=== PATIENT | male | born 1945 | race Caucasian/White ===

== ENCOUNTER 2017-05-08 10:57 | Emergency (ER) | payer MEDICARE, OTHER ==
[~2017-05-08] VITALS: Ht 180.3 cm; Wt 85.0 kg
[~2017-05-08 10:57] MED LIST: AZOR; HYDROCODONE; METFORMIN; SULF1TAB48 PO
[2017-05-08] MEDS ORDERED: SODIUM CHLORIDE 0.9% 1,000 ML IV ONE (11:19)
[2017-05-08 11:43] LABS: BASOPHILS % 0.8 % (0.0-2.0); EOSINOPHILS % 3.4 % (0.0-5.0); HEMATOCRIT. 37.9 % (42.0-52.0); HEMOGLOBIN. 13.4 g/dL (14.0-18.0); LYMPHOCYTES % 24.9 % (20.0-50.0); MEAN CORPUSCULAR VOLUME 90.9 fL (80.0-94.0); MEAN PLATELET VOLUME 7.9 fl (7.4-10.4); MONOCYTES % 10.5 % (2.0-8.0); NEUTROPHILS % 60.4 % (40.0-76.0); PLATELET 230 x1000/uL (130-400); RED BLOOD CELL COUNT 4.17 mill/uL (4.7-6.1); RED CELL DISTRIBUTION WIDTH 13.4 % (11.6-14.6)
[2017-05-08 11:48] LABS: CHLORIDE 98 mEq/L (98-107)
[2017-05-08 11:53] LABS: ETHANOL BLOOD < 10 mg/dL
[2017-05-08 12:40] LABS: CLARITY URINE CLOUDY (CLEAR); COLOR URINE YELLOW (YELLOW); KETONES URINE TRACE (NEGATIVE); LEUKOCYTE ESTERASE URINE 1+ (NEGATIVE); NITRITE URINE NEGATIVE (NEGATIVE); OCCULT BLOOD URINE 1+ (NEGATIVE); PROTEIN URINE 1+ (NEGATIVE); SPECIFIC GRAVITY URINE 1.031 (1.005-1.030); UROBILINOGEN URINE 0.2 E.U./dL (0.2-1.0)
[2017-05-08 12:58] LABS: *AMPHETAMINES SCREEN URINE NEGATIVE (NEGATIVE); *BARBITURATES SCREEN URINE NEGATIVE (NEGATIVE); *BENZODIAZEPINES SCREEN URINE NEGATIVE (NEGATIVE); *COCAINE SCREEN URINE NEGATIVE (NEGATIVE); METHADONE URINE SCREEN NEGATIVE (NEGATIVE)
[2017-05-08 12:59] LABS: CANNABINOID URINE SCREEN NEGATIVE (NEGATIVE); OPIATES URINE SCREEN NEGATIVE (NEGATIVE); PHENCYCLIDINE URINE SCREEN NEGATIVE (NEGATIVE)
[2017-05-08] MEDS ORDERED: LABETALOL 5MG/ML SYR 20 MG/4 ML SYRINGE IV ONE (14:15)
[2017-05-08] MEDS ORDERED: CLONIDINE 0.1MG TABLET PO ONE (14:15)
[2017-05-08] MEDS ORDERED: CEFTRIAXONE 1 G PREMIX 50 ML IV ONE (14:15)
[2017-05-08 14:41] VITALS: BP 179/101
== END 2017-05-08 15:15 | disposition home or self-care (01) ==
LOC: ER 11:20
DX: N39.0 Urinary tract infection, site not specified (principal); R05 Cough; I10 Essential (primary) hypertension; N40.0 Benign prostatic hyperplasia without lower urinary tract symptoms; E11.9 Type 2 diabetes mellitus without complications; Z79.84 Long term (current) use of oral hypoglycemic drugs
CPT/HCPCS: 36415; 71045; 80053; 80305; 81003; 83690; 85025; 87077; 87086; 87186; 96365; 96375; 99285; G0482; J0696; J3490; J7030

== ENCOUNTER 2018-06-20 13:15 | Inpatient (IN) | payer OTHER, MEDICARE ==
[~2018-06-20] VITALS: Ht 182.9 cm; Wt 81.6 kg
[2018-06-20] MEDS ORDERED: SODIUM CHLORIDE 0.9% 1000ML BAG (SEPSIS BOLUS) IV ONE (14:30)
[2018-06-20] MEDS ORDERED: KETOROLAC 30MG/ML VIAL IV STA (14:30)
[2018-06-20] MEDS ORDERED: ACETAMINOPHEN 325MG TABLET PO STA (14:30)
[2018-06-20] MEDS ORDERED: PIPERACILLIN/TAZ 3.375G PREMIX 50 ML IV ONE (14:30)
[2018-06-20] MEDS ORDERED: ONDANSETRON HCL 4MG/2ML INJ IV STA (14:30)
[2018-06-20] MEDS ORDERED: VANCOMYCIN 1 G PREMIX 200 ML IV ONE (14:30)
[2018-06-20] MEDS ORDERED: MORPHINE SULFATE 4 MG/ML CPJ (NOT FOR IM USE) IV STA (14:30)
[2018-06-20 14:42] LABS: BASOPHILS % 0.2 % (0.0-2.0); HEMATOCRIT. 40.9 % (42.0-52.0); HEMOGLOBIN. 14.4 g/dL (14.0-18.0); MEAN CORPUSCULAR HEMOGLOBIN 32.4 pg (28.0-32.0); MEAN CORPUSCULAR VOLUME 92.4 fL (80.0-94.0); MONOCYTES % 7.6 % (2.0-8.0); NEUTROPHILS % 83.2 % (40.0-76.0); PLATELET 148 x1000/uL (130-400); RED BLOOD CELL COUNT 4.43 mill/uL (4.7-6.1); RED CELL DISTRIBUTION WIDTH 13.1 % (11.6-14.6)
[2018-06-20] MEDS ORDERED: HYDRALAZINE 20MG/ML VIAL IV ONE (14:45)
[2018-06-20 14:49] LABS: PROTHROMBIN TIME 10.7 sec (9.6-11.0)
[2018-06-20 14:50] LABS: CHLORIDE 98 mEq/L (98-107)
[2018-06-20 14:54] LABS: ETHANOL BLOOD < 10 mg/dL
[2018-06-20 14:58] LABS: CREATINE KINASE 142 IU/L (39-308)
[2018-06-20 15:01] LABS: CREATINE KINASE MB FRACTION < 1.0 ng/mL (0.5-3.6)
[2018-06-20 17:08] LABS: CLARITY URINE CLOUDY (CLEAR); COLOR URINE YELLOW (YELLOW); KETONES URINE 2+ (NEGATIVE); LEUKOCYTE ESTERASE URINE 1+ (NEGATIVE); NITRITE URINE NEGATIVE (NEGATIVE); OCCULT BLOOD URINE TRACE (NEGATIVE); PH URINE 6.5 (4.5-8.0); PROTEIN URINE 2+ (NEGATIVE); SPECIFIC GRAVITY URINE 1.031 (1.005-1.030)
[2018-06-20 17:18] LABS: *AMPHETAMINES SCREEN URINE NEGATIVE (NEGATIVE)
[2018-06-20 17:19] LABS: *BARBITURATES SCREEN URINE NEGATIVE (NEGATIVE); *BENZODIAZEPINES SCREEN URINE NEGATIVE (NEGATIVE); *COCAINE SCREEN URINE NEGATIVE (NEGATIVE); CANNABINOID URINE SCREEN NEGATIVE (NEGATIVE); METHADONE URINE SCREEN NEGATIVE (NEGATIVE); OPIATES URINE SCREEN PRESUMTIVE POSITIVE (NEGATIVE); PHENCYCLIDINE URINE SCREEN NEGATIVE (NEGATIVE)
[2018-06-20 20:57] VITALS: BP 138/84
[2018-06-21] VITALS (7 sets, daily range): BP systolic 121–178; BP diastolic 75–97
[2018-06-21] MEDS ORDERED: DEXTROSE 50% WATER 50ML SYRINGE IV PRN (05:30)
[2018-06-21] MEDS: BLOOD SUGAR DIAGNOSTIC STRIP TEST SCH ×4 (06:26→21:13)
[2018-06-21] MEDS: INSULIN LISPRO 100 UNITS/ML SUBCUT SCH ×4 (06:50→21:13)
[2018-06-21] MEDS: ASPIRIN 81MG TABLET PO SCH (08:16)
[2018-06-21] MEDS: AMLODIPINE 5MG TABLET PO SCH ×2 (08:16→21:11)
[2018-06-21 09:48] LABS: BASOPHILS % 0.3 % (0.0-2.0); EOSINOPHILS % 0.9 % (0.0-5.0); HEMATOCRIT. 35.4 % (42.0-52.0); HEMOGLOBIN. 12.4 g/dL (14.0-18.0); LYMPHOCYTES % 11.8 % (20.0-50.0); MEAN CORPUSCULAR HEMOGLOBIN 32.3 pg (28.0-32.0); MEAN CORPUSCULAR VOLUME 91.9 fL (80.0-94.0); MEAN PLATELET VOLUME 9.8 fl (7.4-10.4); PLATELET 121 x1000/uL (130-400); RED BLOOD CELL COUNT 3.85 mill/uL (4.7-6.1); RED CELL DISTRIBUTION WIDTH 13.4 % (11.6-14.6)
[2018-06-21 09:55] LABS: CHLORIDE 103 mEq/L (98-107)
[2018-06-21] MEDS ORDERED: INFLUENZA VIRUS VACCINE(AFLURIA) 0.5ML SYR IM ONE (10:00)
[2018-06-21 10:03] LABS: LDL CHOLESTEROL 43 mg/dL (5-100)
[2018-06-21 10:05] LABS: HDL CHOLESTEROL 52 mg/dL (40-59)
[2018-06-21] MEDS: HYDROCODONE/ACETAMINOPHEN 5/325MG TABLET PO PRN (13:57)
[2018-06-21] MEDS: PIPERACILLIN/TAZ 3.375G PREMIX 50 ML IV SCH ×2 (14:43→21:10)
[2018-06-21] MEDS: CLONIDINE 0.1MG TABLET PO PRN (15:33)
[2018-06-21] MEDS: ONDANSETRON HCL 4MG/2ML INJ IV PRN (15:34)
[2018-06-21] MEDS: INSULIN GLARGINE UD 100 UNITS/ML SYR SUBCUT SCH (21:12)
[2018-06-22] VITALS (7 sets, daily range): BP systolic 129–166; BP diastolic 67–88
[2018-06-22] MEDS: HYDROCODONE/ACETAMINOPHEN 5/325MG TABLET PO PRN ×3 (00:29→11:47)
[2018-06-22] MEDS: PIPERACILLIN/TAZ 3.375G PREMIX 50 ML IV SCH (05:51)
[2018-06-22 06:09] LABS: BASOPHILS % 0.6 % (0.0-2.0); EOSINOPHILS % 3.2 % (0.0-5.0); HEMATOCRIT. 33.4 % (42.0-52.0); HEMOGLOBIN. 11.8 g/dL (14.0-18.0); LYMPHOCYTES % 16.9 % (20.0-50.0); MEAN CORPUSCULAR HEMOGLOBIN 32.6 pg (28.0-32.0); MEAN CORPUSCULAR VOLUME 92.5 fL (80.0-94.0); MEAN PLATELET VOLUME 9.4 fl (7.4-10.4); MONOCYTES % 8.7 % (2.0-8.0); NEUTROPHILS % 70.6 % (40.0-76.0); PLATELET 123 x1000/uL (130-400); RED BLOOD CELL COUNT 3.61 mill/uL (4.7-6.1); RED CELL DISTRIBUTION WIDTH 13.5 % (11.6-14.6)
[2018-06-22] MEDS: INSULIN LISPRO 100 UNITS/ML SUBCUT SCH ×2 (06:23→12:17)
[2018-06-22] MEDS: BLOOD SUGAR DIAGNOSTIC STRIP TEST SCH ×2 (06:23→12:17)
[2018-06-22 06:44] LABS: CHLORIDE 104 mEq/L (98-107)
[2018-06-22] MEDS: ASPIRIN 81MG TABLET PO SCH (09:40)
[2018-06-22] MEDS: AMLODIPINE 5MG TABLET PO SCH (09:41)
[2018-06-22] MEDS: INSULIN GLARGINE UD 100 UNITS/ML SYR SUBCUT SCH (09:43)
[2018-06-22] MEDS ORDERED: LOSARTAN POTASSIUM 50 MG TABLET PO SCH (10:45)
[2018-06-22] MEDS: ONDANSETRON HCL 4MG/2ML INJ IV PRN (11:47)
[2018-06-22] MEDS: CLONIDINE 0.1MG TABLET PO PRN (15:30)
[2018-06-22] MEDS ORDERED: HYDRALAZINE 20MG/ML VIAL IV NR ×2 (16:42→16:45)
[2018-06-22] MEDS ORDERED: HYDRALAZINE 20MG/ML VIAL IV ONE (16:45)
== END 2018-06-22 17:38 | disposition home or self-care (01) | DRG 872 ==
LOC: ER 15:15 → 8WST 17:04 → EDBEDREQ 17:14 → EDBEDREQSVC 17:14 → ENRESERV 20:09
PROVIDERS: ADMIT Internal Medicine; ATTEND Internal Medicine
DX: A41.9 Sepsis, unspecified organism (principal); N39.0 Urinary tract infection, site not specified; I10 Essential (primary) hypertension; N41.9 Inflammatory disease of prostate, unspecified; E11.65 Type 2 diabetes mellitus with hyperglycemia; Z90.49 Acquired absence of other specified parts of digestive tract; Z79.899 Other long term (current) drug therapy; Z79.84 Long term (current) use of oral hypoglycemic drugs
CPT/HCPCS: 36415; 71045; 74176; 80048; 80061; 80305; 80320; 82550; 82553; 82962; 83605; 83880; 84145; 84153; 84443; 84484; 90686; 93005; 96365; 96366; 97162; 99285; J0360; J1815; J1885; J2270; J2405; J2543; J3370; J7030; J7040; G0103; G0480

== ENCOUNTER 2019-05-21 14:59 | Emergency (ER) | payer OTHER, MEDICARE ==
[~2019-05-21] VITALS: Ht 175.3 cm; Wt 82.0 kg
[2019-05-21] MEDS ORDERED: AMLODIPINE 5MG TABLET PO ONE (16:00)
[2019-05-21 17:53] VITALS: BP 235/109
== END 2019-05-21 17:53 | disposition home or self-care (01) ==
LOC: ER 14:59
DX: I16.0 Hypertensive urgency (principal); E11.9 Type 2 diabetes mellitus without complications; Z79.84 Long term (current) use of oral hypoglycemic drugs
CPT/HCPCS: 93005; 99283

== ENCOUNTER 2019-10-28 13:00 | Inpatient (IN) | payer OTHER ==
[~2019-10-28] VITALS: Ht 175.3 cm; Wt 80.3 kg
[2019-10-28 14:25] LABS: BASOPHILS % 1.1 % (0.0-2.0); EOSINOPHILS % 3.4 % (0.0-5.0); HEMATOCRIT. 37.4 % (42.0-52.0); HEMOGLOBIN. 13.2 g/dL (14.0-18.0); LYMPHOCYTES % 33.6 % (20.0-50.0); MEAN CORPUSCULAR HEMOGLOBIN 32.7 pg (28.0-32.0); MEAN CORPUSCULAR VOLUME 92.6 fL (80.0-94.0); MONOCYTES % 7.3 % (2.0-8.0); NEUTROPHILS % 54.6 % (40.0-76.0); PLATELET 167 x1000/uL (130-400); RED BLOOD CELL COUNT 4.04 mill/uL (4.7-6.1); RED CELL DISTRIBUTION WIDTH 13.5 % (11.6-14.6)
[2019-10-28 14:27] LABS: CHLORIDE 102 mEq/L (98-107)
[2019-10-28 14:57] LABS: *BENZODIAZEPINES SCREEN URINE NEGATIVE (NEGATIVE); *COCAINE SCREEN URINE NEGATIVE (NEGATIVE); METHADONE URINE SCREEN NEGATIVE (NEGATIVE)
[2019-10-28 14:58] LABS: *AMPHETAMINES SCREEN URINE NEGATIVE (NEGATIVE); *BARBITURATES SCREEN URINE NEGATIVE (NEGATIVE); CANNABINOID URINE SCREEN NEGATIVE (NEGATIVE); OPIATES URINE SCREEN NEGATIVE (NEGATIVE); PHENCYCLIDINE URINE SCREEN NEGATIVE (NEGATIVE)
[2019-10-28] MEDS ORDERED: POTASSIUM CHLORIDE 20MEQ TABLET SR PO NR (17:15)
[2019-10-28] MEDS ORDERED: SODIUM CHLORIDE 0.9% 100 ML IV ONE (17:15)
[2019-10-28] MEDS ORDERED: ASPIRIN 325MG TABLET PO ONE (17:30)
[2019-10-28] MEDS ORDERED: SODIUM CHLORIDE 0.9% 500 ML IV ONE (17:30)
[2019-10-28] MEDS ORDERED: HYDRALAZINE 20MG/ML VIAL IV ONE (17:30)
[2019-10-28] MEDS ORDERED: NA PHOS,M-B/NA PHOS,DI-BA ENEMA 118ML PR PRN (18:00)
[2019-10-28] MEDS ORDERED: LORAZEPAM 0.5MG TABLET PO PRN (18:00)
[2019-10-28] MEDS ORDERED: DOCUSATE SODIUM 100MG CAPSULE PO PRN (18:00)
[2019-10-28] MEDS ORDERED: DEXTROSE 50% WATER 50ML SYRINGE IV PRN (18:00)
[2019-10-28] MEDS ORDERED: DIPHENHYDRAMINE 50MG/ML VIAL IV PRN (18:00)
[2019-10-28] MEDS ORDERED: ACETAMINOPHEN 650MG SUPP PR PRN (18:00)
[2019-10-28] MEDS ORDERED: IPRATROPIUM/ALBUTEROL 0.5-3(2.5)MG/3ML NEB NEB PRN (18:00)
[2019-10-28] MEDS ORDERED: MAGNESIUM/ALUMINUM HYDROXIDE/SIMETHICONE 30ML UDC PO PRN (18:00)
[2019-10-28] MEDS ORDERED: CLONIDINE 0.1MG TABLET PO PRN (18:00)
[2019-10-28] MEDS ORDERED: HYDROCODONE/ACETAMINOPHEN 5/325MG TABLET PO PRN (18:00)
[2019-10-28] MEDS ORDERED: ACETAMINOPHEN 650MG/20.3ML UDC GT PRN (18:00)
[2019-10-28] MEDS ORDERED: ONDANSETRON HCL 4MG/2ML INJ IV PRN (18:00)
[2019-10-28] MEDS ORDERED: GUAIFENESIN 200MG/10ML SUGAR FREE UDC PO PRN (18:00)
[2019-10-28] MEDS: AMLODIPINE 5MG TABLET PO SCH (18:57)
[2019-10-28] MEDS: BLOOD SUGAR DIAGNOSTIC STRIP TEST SCH ×2 (19:21→21:00)
[2019-10-28] MEDS: INSULIN LISPRO 100 UNITS/ML SUBCUT SCH ×2 (20:46→22:53)
[2019-10-28 21:17] VITALS: BP 197/97
[2019-10-28] MEDS ORDERED: IOHEXOL-350 100 ML BOTTLE ONE (21:36)
[2019-10-28 21:50] VITALS: BP 196/97
[2019-10-28] MEDS ORDERED: ATOR40TA70 PO (21:50)
[2019-10-28] MEDS ORDERED: AMLO10TA80 PO (21:50)
[2019-10-28] MEDS ORDERED: GLIP5TAB12 PO (21:50)
[2019-10-28] MEDS ORDERED: LEVO500T89 PO (21:58)
[2019-10-28] MEDS: FAMOTIDINE 20MG TABLET PO SCH (22:37)
[2019-10-28] MEDS: ENOXAPARIN 40MG/0.4ML SYR SUBCUT SCH (22:37)
[2019-10-29] VITALS: BP 162/85
[2019-10-29 01:48] LABS: CREATINE KINASE 99 IU/L (39-308)
[2019-10-29 01:50] LABS: CREATINE KINASE MB FRACTION 1.1 ng/mL (0.5-3.6)
[2019-10-29 04:00] VITALS: BP 164/88
[2019-10-29] MEDS: BLOOD SUGAR DIAGNOSTIC STRIP TEST SCH ×4 (06:06→21:19)
[2019-10-29] MEDS: INSULIN LISPRO 100 UNITS/ML SUBCUT SCH ×4 (06:21→21:25)
[2019-10-29 06:42] LABS: CLARITY URINE CLEAR (CLEAR); COLOR URINE YELLOW (YELLOW); KETONES URINE NEGATIVE (NEGATIVE); LEUKOCYTE ESTERASE URINE 2+ (NEGATIVE); NITRITE URINE NEGATIVE (NEGATIVE); OCCULT BLOOD URINE NEGATIVE (NEGATIVE); PROTEIN URINE NEGATIVE (NEGATIVE); SPECIFIC GRAVITY URINE 1.017 (1.005-1.030); UROBILINOGEN URINE 0.2 E.U./dL (0.2-1.0)
[2019-10-29 07:51] LABS: BASOPHILS % 0.7 % (0.0-2.0); HEMATOCRIT. 38.8 % (42.0-52.0); HEMOGLOBIN. 13.9 g/dL (14.0-18.0); LYMPHOCYTES % 31.4 % (20.0-50.0); MEAN CORPUSCULAR HEMOGLOBIN 33.1 pg (28.0-32.0); MEAN CORPUSCULAR VOLUME 92.7 fL (80.0-94.0); MEAN PLATELET VOLUME 10.5 fl (7.4-10.4); MONOCYTES % 7.1 % (2.0-8.0); NEUTROPHILS % 56.8 % (40.0-76.0); PLATELET 169 x1000/uL (130-400); RED BLOOD CELL COUNT 4.18 mill/uL (4.7-6.1); RED CELL DISTRIBUTION WIDTH 13.1 % (11.6-14.6)
[2019-10-29 08:00] VITALS: BP 164/87
[2019-10-29 08:11] LABS: CHLORIDE 104 mEq/L (98-107)
[2019-10-29 08:21] LABS: LDL CHOLESTEROL 88 mg/dL (5-100)
[2019-10-29 08:22] LABS: CREATINE KINASE 94 IU/L (39-308)
[2019-10-29 08:23] LABS: HDL CHOLESTEROL 55 mg/dL (40-59); T4 FREE 1.18 ng/dL (0.76-1.46)
[2019-10-29] MEDS: AMLODIPINE 5MG TABLET PO SCH ×2 (08:43→17:45)
[2019-10-29] MEDS: ASPIRIN 81MG EC TABLET PO SCH (08:43)
[2019-10-29 12:00] VITALS: BP 154/91
[2019-10-29 16:00] VITALS: BP 129/72
[2019-10-29 20:00] VITALS: BP 168/94
[2019-10-29] MEDS: FAMOTIDINE 20MG TABLET PO SCH (21:22)
[2019-10-29] MEDS: ENOXAPARIN 40MG/0.4ML SYR SUBCUT SCH (21:23)
[2019-10-29] MEDS: CEFTRIAXONE 1,000 MG in DEXTROSE 5% WATER 50 ML IV SCH (21:24)
[2019-10-30] VITALS: BP 181/90
[2019-10-30 04:00] VITALS: BP 156/92
[2019-10-30 05:57] LABS: HEMATOCRIT 38.8 % (42.0-52.0); HEMOGLOBIN 13.7 g/dL (14.0-18.0); MEAN CORPUSCULAR HEMOGLOBIN 32.8 pg (28.0-32.0); MEAN CORPUSCULAR VOLUME 93.1 fL (80.0-94.0); PLATELET 159 x1000/uL (130-400); RED BLOOD CELL COUNT 4.16 mill/uL (4.7-6.1); RED CELL DISTRIBUTION WIDTH 13.3 % (11.6-14.6)
[2019-10-30 06:11] LABS: CHLORIDE 105 mEq/L (98-107)
[2019-10-30] MEDS: BLOOD SUGAR DIAGNOSTIC STRIP TEST SCH ×4 (06:21→20:33)
[2019-10-30] MEDS: INSULIN LISPRO 100 UNITS/ML SUBCUT SCH ×4 (06:25→20:49)
[2019-10-30 08:00] VITALS: BP 167/99
[2019-10-30] MEDS ORDERED: REGADENOSON 0.4 MG/5 ML IV SCH (08:00)
[2019-10-30] MEDS: CLONIDINE 0.1MG TABLET PO SCH ×3 (08:41→23:06)
[2019-10-30] MEDS: AMLODIPINE 5MG TABLET PO SCH ×2 (08:42→20:48)
[2019-10-30] MEDS: ASPIRIN 81MG EC TABLET PO SCH (08:42)
[2019-10-30 12:00] VITALS: BP 132/78
[2019-10-30 16:15] VITALS: BP 137/77
[2019-10-30 16:55] LABS: INR 1.1; PROTHROMBIN TIME 11.4 sec (9.6-11.0)
[2019-10-30] MEDS: ENOXAPARIN 80MG/0.8ML SYR SUBCUT SCH (17:42)
[2019-10-30 20:00] VITALS: BP 149/68
[2019-10-30] MEDS: CEFTRIAXONE 1,000 MG in DEXTROSE 5% WATER 50 ML IV SCH (20:46)
[2019-10-30] MEDS: FAMOTIDINE 20MG TABLET PO SCH (20:48)
[2019-10-31] VITALS (7 sets, daily range): BP systolic 115–140; BP diastolic 67–76
[2019-10-31] MEDS: INSULIN LISPRO 100 UNITS/ML SUBCUT SCH ×2 (05:54→11:56)
[2019-10-31] MEDS: BLOOD SUGAR DIAGNOSTIC STRIP TEST SCH ×2 (05:55→11:51)
[2019-10-31] MEDS: CLONIDINE 0.1MG TABLET PO SCH ×2 (05:58→14:18)
[2019-10-31] MEDS: ENOXAPARIN 80MG/0.8ML SYR SUBCUT SCH (05:59)
[2019-10-31 07:36] LABS: BASOPHILS % 0.6 % (0.0-2.0); EOSINOPHILS % 5.6 % (0.0-5.0); HEMATOCRIT. 35.7 % (42.0-52.0); HEMOGLOBIN. 12.5 g/dL (14.0-18.0); MEAN CORPUSCULAR HEMOGLOBIN 32.6 pg (28.0-32.0); MEAN CORPUSCULAR VOLUME 92.9 fL (80.0-94.0); MEAN PLATELET VOLUME 10.5 fl (7.4-10.4); MONOCYTES % 8.1 % (2.0-8.0); NEUTROPHILS % 45.7 % (40.0-76.0); PLATELET 150 x1000/uL (130-400); RED BLOOD CELL COUNT 3.85 mill/uL (4.7-6.1); RED CELL DISTRIBUTION WIDTH 13.3 % (11.6-14.6)
[2019-10-31] MEDS: AMLODIPINE 5MG TABLET PO SCH (07:55)
[2019-10-31] MEDS: ASPIRIN 81MG EC TABLET PO SCH (07:55)
[2019-10-31 08:26] LABS: CHLORIDE 104 mEq/L (98-107)
[2019-10-31] MEDS ORDERED: WARFARIN SODIUM 7.5MG TABLET PO SCH (18:00)
== END 2019-10-31 17:54 | disposition home or self-care (01) | DRG 300 ==
LOC: ER 13:00 → 5WST 17:31 → SUPCPDRO 17:57 → ENRESERV 20:00
PROVIDERS: ADMIT Internal Medicine; ATTEND Internal Medicine
DX: I82.449 Acute embolism and thrombosis of unspecified tibial vein (principal); N39.0 Urinary tract infection, site not specified; M94.0 Chondrocostal junction syndrome [Tietze]; J84.10 Pulmonary fibrosis, unspecified; M54.30 Sciatica, unspecified side; D63.8 Anemia in other chronic diseases classified elsewhere; E11.65 Type 2 diabetes mellitus with hyperglycemia; E87.6 Hypokalemia; I10 Essential (primary) hypertension; D64.9 Anemia, unspecified; K57.90 Diverticulosis of intestine, part unspecified, without perforation or abscess without bleeding; I25.10 Atherosclerotic heart disease of native coronary artery without angina pectoris; Z82.3 Family history of stroke; Z82.49 Family history of ischemic heart disease and other diseases of the circulatory system; Z87.891 Personal history of nicotine dependence; Z79.899 Other long term (current) drug therapy
CPT/HCPCS: 36415; 71045; 71275; 78452; 80048; 80053; 80061; 80305; 81003; 82550; 82553; 82962; 83036; 83880; 84153; 84439; 84443; 84484; 85025; 85027; 93005; 93017; 93306; 93970; 99285; A9500; J0360; J0696; J1650; J1815; J7050; J7060; Q9967; G0103

== ENCOUNTER 2021-03-12 11:11 | Emergency (ER) | payer MEDICARE, OTHER ==
[~2021-03-12] VITALS: Ht 172.7 cm; Wt 66.0 kg
[~2021-03-12 11:11] MED LIST changes: +AMLO10TA80 PO; +ATOR40TA70 PO; -AZOR; +GLIP5TAB12 PO; -HYDROCODONE; +LEVO500T89 PO; -METFORMIN; -SULF1TAB48 PO
[2021-03-12 11:22] VITALS: BP 200/107
[2021-03-12 13:01] LABS: CHLORIDE 103 mEq/L (98-107)
[2021-03-12 13:07] LABS: BASOPHILS % 0.6 % (0.0-2.0); EOSINOPHILS % 1.3 % (0.0-5.0); HEMATOCRIT. 38.7 % (42.0-52.0); HEMOGLOBIN. 13.3 g/dL (14.0-18.0); LYMPHOCYTES % 14.4 % (20.0-50.0); MEAN CORPUSCULAR HEMOGLOBIN 32.4 pg (28.0-32.0); MEAN PLATELET VOLUME 10.2 fl (7.4-10.4); MONOCYTES % 7.4 % (2.0-8.0); NEUTROPHILS % 76.3 % (40.0-76.0); PLATELET 165 x1000/uL (130-400); RED BLOOD CELL COUNT 4.11 mill/uL (4.7-6.1); RED CELL DISTRIBUTION WIDTH 13.1 % (11.6-14.6)
[2021-03-12] MEDS ORDERED: ASPIRIN 81MG TABLET PO ONE (17:45)
[2021-03-12] MEDS ORDERED: FAMOTIDINE 20MG/2ML VIAL IV ONE (17:45)
[2021-03-12] MEDS ORDERED: LABETALOL 5MG/ML SYR 20 MG/4 ML SYRINGE IV ONE (17:45)
== END 2021-03-12 20:30 | disposition left against medical advice (07) ==
LOC: ER 11:11 → CANBEDREQ 03-13 15:37
DX: R07.89 Other chest pain (principal); R42 Dizziness and giddiness; R10.13 Epigastric pain; I10 Essential (primary) hypertension; E11.9 Type 2 diabetes mellitus without complications; Z90.49 Acquired absence of other specified parts of digestive tract
CPT/HCPCS: 36415; 71045; 76705; 80053; 83690; 83880; 84484; 85025; 93005; 99291; J7042; J3490